=== PATIENT | male | born 1965 | race Asian ===

== ENCOUNTER 2023-10-27 09:51 | Outpatient (REF) | payer OTHER, SELFPAY ==
--- NOTE | ~2023-10-27 | CT_ITS ---
EXAMINATION: CT ANGIOGRAM OF THE CHEST WITHOUT AND WITH CONTRAST CLINICAL INFORMATION: Thoracic aortic ectasia COMPARISON: None. TECHNIQUE: Multidetector volumetric CT imaging of the chest was performed before and after the administration of 70 mL of Omnipaque 350 intravenous contrast without immediate adverse reactions. 3D POSTPROCESSING: Multiple 3-D angiographic images were processed from the initial data set by the medical lab technologist at the modality workstation under concurrent physician supervision. DOSE LOWERING TECHNIQUES: This CT examination was performed using dose optimization techniques as appropriate, variously including the following: - Automated exposure control - Adjustment of mA and/or kV according to patient size (this includes techniques or standardized protocols for targeted exams where dose is matched to indication/reason for exam; i.e. extremities or head) - Use of iterative reconstruction technique DLP: 128 mGy-cm. FINDINGS: VASCULAR: ASCENDING AORTA: Motion artifact in the mid ascending aorta. The mid segment measures 4.0 x 3.8 cm. No evidence of dissection. AORTIC ARCH: The mid aortic arch 2.7 x 2.5 cm. Three-vessel arch anatomy. The great vessels are patent. DESCENDING AORTA: The mid segment measures 2.4 x 2.5 cm. No significant atherosclerotic plaque ABDOMINAL AORTA: Visualized proximal abdominal aorta is normal in caliber. NONVASCULAR: LUNGS: The lungs are clear with no evidence of inflammation or nodules. MEDIASTINUM: Heart is normal in size. Pericardium is normal. No mediastinal or hilar lymphadenopathy. CORONARY ARTERY CALCIFICATION: None visualized on this study. PLEURA: There is no pleural effusion. No pleural mass or thickening. ABDOMINAL VISCERA: Unremarkable OSSEOUS STRUCTURES: Unremarkable. CT/CT angio chest aorta IMPRESSION: Dilated mid ascending thoracic aorta measuring 4.0 cm. Aortic tapers normally in the aortic arch and descending thoracic aorta.
[2023-10-27] MEDS: iohexoL 350 MG/ML 100 ML INFUS..BTL 70 ML IV (11:22)
[2023-10-28 08:54] LABS: Creatinine POC 0.5 mg/dL (0.5-1.4); GFR POC > 60
== END 2023-10-27 09:52 | disposition home or self-care (01) ==
LOC: HO.CT 09:51
PROVIDERS: Visit Provider Internal Medicine
DX: I77.810 Thoracic aortic ectasia (principal); R93.89 Abnormal findings on diagnostic imaging of other specified body structures
CPT/HCPCS: 71275; 82565; Q9967